=== PATIENT | male | born 1970 | race Caucasian/White ===

== ENCOUNTER → 2019-08-06 08:43 | Outpatient (BNVA) | payer MEDICARE, MEDICAID, SELFPAY | PROVIDERS: Family Provider Nurse Practitioner; PCP Nurse Practitioner; Visit Provider Nurse Practitioner | DX: F25.1 Schizoaffective disorder, depressive type (principal); F33.2 Major depressive disorder, recurrent severe without psychotic features; F10.20 Alcohol dependence, uncomplicated; F12.20 Cannabis dependence, uncomplicated | CPT/HCPCS: 99213 ==

== ENCOUNTER → 2019-09-03 07:56 | Outpatient (BNVA) | payer MEDICARE, MEDICAID, SELFPAY | PROVIDERS: Family Provider Nurse Practitioner; PCP Nurse Practitioner; Visit Provider Nurse Practitioner | DX: F25.1 Schizoaffective disorder, depressive type (principal); F33.2 Major depressive disorder, recurrent severe without psychotic features; F12.20 Cannabis dependence, uncomplicated; F10.20 Alcohol dependence, uncomplicated | CPT/HCPCS: 36415; 80053; 80061; 84443; 85025; 99213 ==

== ENCOUNTER 2019-09-03 09:07 | Outpatient (CLI) | payer MEDICARE, MEDICAID, SELFPAY ==
[2019-09-03 09:55] LABS: Basophils # 0.1 10^3/uL (0.0-0.1); Basophils % 0.9 %; Eosinophils # 0.2 10^3/uL (0.0-0.8); Eosinophils % 2.7 %; Hematocrit 42.4 % (42.0-52.0); Hemoglobin 14.4 g/dL (11.7-16.6); Lymphocytes # 1.9 10^3/uL (0.8-4.8); Lymphocytes % 33.6 %; Mean Corpuscular Hemoglobin 34.3 pg (28.0-34.0); Mean Platelet Volume 9.6 fL (7.4-10.4); Monocytes # 0.5 10^3/uL (0.2-0.9); Neutrophils # 3.1 10^3/uL (1.8-7.7); Neutrophils % 54.4 %; Nucleated Red Blood Cells % 0 %; Platelet Count 238 10^3/cmm (130-400); Red Cell Distribution Width 14.2 % (12.1-15.1); White Blood Count 5.6 10^3/uL (4.0-10.0)
[2019-09-03 10:24] LABS: Albumin Level 4.4 g/dL (3.5-5.2); Alkaline Phosphatase 73 IU/L (40-130); Blood Urea Nitrogen 7 mg/dL (6-20); Calcium 9.6 mg/dL (8.5-10.5); Carbon Dioxide 27 mmol/L (22-29); Chloride 100 mmol/L (98-107); Chol HDL Ratio 3.03 mg/dL (1.0-5.00); Cholesterol 191 mg/dL (0-200); Globulin 3.7 g/dL (1.3-4.6); Glomerular Filtration Rate 118.9 mL/min (90-130); Glucose 98 mg/dL (74-109); HDL Cholesterol 63 mg/dL (60-100); LDL Cholesterol Calculated 113 mg/dL (50-129); LDL HDL Ratio 1.79 RATIO (0.00-3.22); Sodium 135 mmol/L (136-145); Thyroid Stimulating Hormone 3.17 uIU/mL (0.27-4.20); Total Bilirubin 0.3 mg/dL (0.15-1.2); Total Protein 8.1 g/dL (6.6-8.7); Triglycerides 75 mg/dL (0-150)
[2019-09-03 10:33] LABS: Alanine Aminotransferase 10 U/L (0-41); Aspartate Amino Transferase 22 U/L (0-40)
== END 2019-09-03 09:08 | disposition home or self-care (01) ==
LOC: LAB 09:16
PROVIDERS: Family Provider Nurse Practitioner; PCP Nurse Practitioner; Visit Provider Nurse Practitioner
DX: F10.20 Alcohol dependence, uncomplicated (principal); F33.2 Major depressive disorder, recurrent severe without psychotic features; Z13.6 Encounter for screening for cardiovascular disorders
CPT/HCPCS: 36415; 80053; 80061; 84443; 85025

== ENCOUNTER → 2019-10-01 08:59 | Outpatient (BNVA) | payer MEDICARE, MEDICAID, SELFPAY | PROVIDERS: Family Provider Nurse Practitioner; PCP Nurse Practitioner; Visit Provider Nurse Practitioner | DX: F25.1 Schizoaffective disorder, depressive type (principal); F33.2 Major depressive disorder, recurrent severe without psychotic features; F10.20 Alcohol dependence, uncomplicated; F12.20 Cannabis dependence, uncomplicated | CPT/HCPCS: 99213 ==

== ENCOUNTER → 2019-10-29 08:40 | Outpatient (BNVA) | payer MEDICARE, MEDICAID, SELFPAY | PROVIDERS: Family Provider Nurse Practitioner; PCP Nurse Practitioner; Visit Provider Nurse Practitioner | DX: F33.2 Major depressive disorder, recurrent severe without psychotic features (principal); F12.20 Cannabis dependence, uncomplicated; F10.20 Alcohol dependence, uncomplicated; F25.1 Schizoaffective disorder, depressive type | CPT/HCPCS: 99213 ==

== ENCOUNTER → 2019-11-26 07:44 | Outpatient (BNVA) | payer MEDICARE, MEDICAID, SELFPAY | PROVIDERS: Family Provider Nurse Practitioner; PCP Nurse Practitioner; Visit Provider Nurse Practitioner | DX: F25.1 Schizoaffective disorder, depressive type (principal) | CPT/HCPCS: 99213 ==

== ENCOUNTER → 2019-12-24 07:37 | Outpatient (BNVA) | payer MEDICARE, MEDICAID, SELFPAY | PROVIDERS: Family Provider Nurse Practitioner; PCP Nurse Practitioner; Visit Provider Nurse Practitioner | DX: F33.2 Major depressive disorder, recurrent severe without psychotic features (principal); F25.1 Schizoaffective disorder, depressive type; F12.20 Cannabis dependence, uncomplicated; F10.20 Alcohol dependence, uncomplicated; F15.20 Other stimulant dependence, uncomplicated | CPT/HCPCS: 99214 ==

== ENCOUNTER → 2020-01-21 07:40 | Outpatient (BNVA) | payer MEDICARE, MEDICAID, SELFPAY | PROVIDERS: Family Provider Nurse Practitioner; PCP Nurse Practitioner; Visit Provider Nurse Practitioner | DX: F33.2 Major depressive disorder, recurrent severe without psychotic features (principal); F25.1 Schizoaffective disorder, depressive type; F10.20 Alcohol dependence, uncomplicated; F12.20 Cannabis dependence, uncomplicated; F15.20 Other stimulant dependence, uncomplicated | CPT/HCPCS: 99214 ==

== ENCOUNTER → 2020-02-18 07:58 | Outpatient (BNVA) | payer MEDICARE, MEDICAID, SELFPAY | PROVIDERS: Family Provider Nurse Practitioner; PCP Nurse Practitioner; Visit Provider Nurse Practitioner | DX: F25.1 Schizoaffective disorder, depressive type (principal); F33.2 Major depressive disorder, recurrent severe without psychotic features; F10.20 Alcohol dependence, uncomplicated; F12.20 Cannabis dependence, uncomplicated; F15.20 Other stimulant dependence, uncomplicated | CPT/HCPCS: 99213 ==

== ENCOUNTER → 2020-03-17 11:05 | Outpatient (BNVA) | payer MEDICARE, MEDICAID, SELFPAY | PROVIDERS: Family Provider Nurse Practitioner; PCP Nurse Practitioner; Visit Provider Nurse Practitioner Psychiatric/Mental Health | DX: F25.1 Schizoaffective disorder, depressive type (principal); F10.20 Alcohol dependence, uncomplicated; F12.20 Cannabis dependence, uncomplicated; F15.20 Other stimulant dependence, uncomplicated | CPT/HCPCS: 96372; 99213 ==

== ENCOUNTER → 2020-04-14 08:03 | Outpatient (BNVA) | payer MEDICARE, MEDICAID, SELFPAY | PROVIDERS: Family Provider Nurse Practitioner; PCP Nurse Practitioner; Visit Provider Nurse Practitioner | DX: F25.1 Schizoaffective disorder, depressive type (principal) | CPT/HCPCS: 96372; 99213 ==

== ENCOUNTER → 2020-05-12 08:26 | Outpatient (BNVA) | payer MEDICARE, MEDICAID, SELFPAY | PROVIDERS: Family Provider Nurse Practitioner; PCP Nurse Practitioner; Visit Provider Nurse Practitioner | DX: F25.1 Schizoaffective disorder, depressive type (principal) | CPT/HCPCS: 96372; 99213 ==

== ENCOUNTER → 2020-06-09 11:33 | Outpatient (BNVA) | payer MEDICARE, MEDICAID, SELFPAY | PROVIDERS: Family Provider Nurse Practitioner; PCP Nurse Practitioner; Visit Provider Nurse Practitioner | DX: F25.1 Schizoaffective disorder, depressive type (principal) | CPT/HCPCS: 96372; 99213 ==

== ENCOUNTER → 2020-07-07 11:20 | Outpatient (BNVA) | payer MEDICARE, MEDICAID, SELFPAY | PROVIDERS: Family Provider Nurse Practitioner; PCP Nurse Practitioner; Visit Provider Nurse Practitioner | DX: F25.1 Schizoaffective disorder, depressive type (principal) | CPT/HCPCS: 96372; 99213 ==

== ENCOUNTER → 2020-08-02 11:51 | Outpatient (BNVA) | payer MEDICARE, MEDICAID, SELFPAY | PROVIDERS: Family Provider Nurse Practitioner; PCP Nurse Practitioner; Visit Provider Nurse Practitioner | DX: F25.1 Schizoaffective disorder, depressive type (principal); F10.20 Alcohol dependence, uncomplicated; F12.20 Cannabis dependence, uncomplicated | CPT/HCPCS: 96372; 99213 ==

== ENCOUNTER → 2020-08-30 13:33 | Outpatient (BNVA) | payer MEDICARE, MEDICAID, SELFPAY | PROVIDERS: Family Provider Nurse Practitioner; PCP Nurse Practitioner; Visit Provider Nurse Practitioner | DX: F25.1 Schizoaffective disorder, depressive type (principal); F10.20 Alcohol dependence, uncomplicated; F12.20 Cannabis dependence, uncomplicated; F15.21 Other stimulant dependence, in remission | CPT/HCPCS: 96372; 99214 ==

== ENCOUNTER → 2020-09-27 10:48 | Outpatient (BNVA) | payer MEDICARE, MEDICAID, SELFPAY | PROVIDERS: Family Provider Nurse Practitioner; PCP Nurse Practitioner; Visit Provider Nurse Practitioner | DX: F25.1 Schizoaffective disorder, depressive type (principal); F15.21 Other stimulant dependence, in remission; F12.20 Cannabis dependence, uncomplicated; F10.20 Alcohol dependence, uncomplicated | CPT/HCPCS: 96372; 99214 ==

== ENCOUNTER → 2020-10-28 14:12 | Outpatient (BNVA) | payer MEDICARE, MEDICAID, SELFPAY | PROVIDERS: Family Provider Nurse Practitioner; PCP Nurse Practitioner; Visit Provider Nurse Practitioner | DX: F25.1 Schizoaffective disorder, depressive type (principal) | CPT/HCPCS: 96372; 99214 ==

== ENCOUNTER → 2020-11-23 09:53 | Outpatient (BNVA) | payer MEDICARE, MEDICAID, SELFPAY | PROVIDERS: Family Provider Nurse Practitioner; PCP Nurse Practitioner; Visit Provider Nurse Practitioner | DX: F25.1 Schizoaffective disorder, depressive type (principal); F10.20 Alcohol dependence, uncomplicated; Z79.899 Other long term (current) drug therapy; F15.21 Other stimulant dependence, in remission; F12.20 Cannabis dependence, uncomplicated | CPT/HCPCS: 36415; 96372; 99214 ==

== ENCOUNTER 2020-11-23 10:54 | Outpatient (CLI) | payer MEDICARE, SELFPAY | END 2020-11-23 10:55 | disposition home or self-care (01) | PROVIDERS: Family Provider Nurse Practitioner; PCP Nurse Practitioner; Visit Provider Nurse Practitioner | DX: F10.20 Alcohol dependence, uncomplicated (principal); Z79.899 Other long term (current) drug therapy | CPT/HCPCS: 80061; 83036 ==

== ENCOUNTER → 2020-12-20 09:41 | Outpatient (BNVA) | payer MEDICARE, MEDICAID, SELFPAY | PROVIDERS: Family Provider Nurse Practitioner; PCP Nurse Practitioner; Visit Provider Nurse Practitioner | DX: F25.1 Schizoaffective disorder, depressive type (principal); F15.21 Other stimulant dependence, in remission; F12.20 Cannabis dependence, uncomplicated; F10.20 Alcohol dependence, uncomplicated | CPT/HCPCS: 96372; 99214 ==

== ENCOUNTER → 2021-01-18 11:26 | Outpatient (BNVA) | payer MEDICARE, MEDICAID, SELFPAY | PROVIDERS: Family Provider Nurse Practitioner; PCP Nurse Practitioner; Visit Provider Nurse Practitioner | DX: F25.1 Schizoaffective disorder, depressive type (principal); F10.20 Alcohol dependence, uncomplicated; Z79.899 Other long term (current) drug therapy | CPT/HCPCS: 99214 ==

== ENCOUNTER → 2021-02-16 10:48 | Outpatient (BNVA) | payer MEDICARE, MEDICAID, SELFPAY | PROVIDERS: Family Provider Nurse Practitioner; PCP Nurse Practitioner; Visit Provider Nurse Practitioner | DX: F25.1 Schizoaffective disorder, depressive type (principal); F10.20 Alcohol dependence, uncomplicated; F12.20 Cannabis dependence, uncomplicated; F15.21 Other stimulant dependence, in remission | CPT/HCPCS: 96372; 99214 ==

== ENCOUNTER → 2021-03-16 09:50 | Outpatient (BNVA) | payer MEDICARE, MEDICAID, SELFPAY | PROVIDERS: Family Provider Nurse Practitioner; PCP Nurse Practitioner; Visit Provider Nurse Practitioner | DX: F25.1 Schizoaffective disorder, depressive type (principal); F33.2 Major depressive disorder, recurrent severe without psychotic features; F15.21 Other stimulant dependence, in remission; F12.20 Cannabis dependence, uncomplicated; F10.20 Alcohol dependence, uncomplicated | CPT/HCPCS: 96372; 99214 ==

== ENCOUNTER → 2021-04-13 11:16 | Outpatient (BNVA) | payer MEDICARE, MEDICAID, SELFPAY | PROVIDERS: Family Provider Nurse Practitioner; PCP Nurse Practitioner; Visit Provider Nurse Practitioner | DX: F25.1 Schizoaffective disorder, depressive type (principal); F33.2 Major depressive disorder, recurrent severe without psychotic features | CPT/HCPCS: 96372; 99214 ==

== ENCOUNTER → 2021-05-12 09:46 | Outpatient (BNVA) | payer MEDICARE, MEDICAID, SELFPAY | PROVIDERS: Family Provider Nurse Practitioner; PCP Nurse Practitioner; Visit Provider Nurse Practitioner | DX: F25.1 Schizoaffective disorder, depressive type (principal); F33.2 Major depressive disorder, recurrent severe without psychotic features | CPT/HCPCS: 96372; 99214 ==

== ENCOUNTER → 2021-06-09 10:42 | Outpatient (BNVA) | payer MEDICARE, MEDICAID, SELFPAY | PROVIDERS: Family Provider Nurse Practitioner; PCP Nurse Practitioner; Visit Provider Nurse Practitioner | DX: F25.1 Schizoaffective disorder, depressive type (principal); F33.2 Major depressive disorder, recurrent severe without psychotic features; F10.20 Alcohol dependence, uncomplicated; F15.21 Other stimulant dependence, in remission; F12.20 Cannabis dependence, uncomplicated | CPT/HCPCS: 96372; 99214 ==

== ENCOUNTER → 2021-07-11 09:45 | Outpatient (BNVA) | payer MEDICARE, MEDICAID, SELFPAY | PROVIDERS: Family Provider Nurse Practitioner; PCP Nurse Practitioner; Visit Provider Nurse Practitioner | DX: F25.1 Schizoaffective disorder, depressive type (principal); F33.2 Major depressive disorder, recurrent severe without psychotic features; F10.20 Alcohol dependence, uncomplicated; F12.20 Cannabis dependence, uncomplicated; F15.21 Other stimulant dependence, in remission | CPT/HCPCS: 99214 ==

== ENCOUNTER → 2021-08-08 13:51 | Outpatient (BNVA) | payer MEDICARE, MEDICAID, SELFPAY | PROVIDERS: Family Provider Nurse Practitioner; PCP Nurse Practitioner; Visit Provider Nurse Practitioner | DX: F25.1 Schizoaffective disorder, depressive type (principal); F33.2 Major depressive disorder, recurrent severe without psychotic features; F15.21 Other stimulant dependence, in remission; F12.20 Cannabis dependence, uncomplicated; F10.20 Alcohol dependence, uncomplicated | CPT/HCPCS: 96372; 99214 ==

== ENCOUNTER → 2021-09-11 09:57 | Outpatient (BNVA) | payer MEDICARE, MEDICAID, SELFPAY | PROVIDERS: Family Provider Nurse Practitioner; PCP Nurse Practitioner; Visit Provider Nurse Practitioner | DX: F15.21 Other stimulant dependence, in remission (principal); F10.20 Alcohol dependence, uncomplicated; F12.20 Cannabis dependence, uncomplicated; F25.1 Schizoaffective disorder, depressive type; F33.2 Major depressive disorder, recurrent severe without psychotic features | CPT/HCPCS: 96372; 99214 ==

== ENCOUNTER → 2021-10-06 08:49 | Outpatient (BNVA) | payer MEDICARE, MEDICAID, SELFPAY | PROVIDERS: Family Provider Nurse Practitioner; PCP Nurse Practitioner; Visit Provider Nurse Practitioner | DX: F15.21 Other stimulant dependence, in remission (principal); F12.20 Cannabis dependence, uncomplicated; F10.20 Alcohol dependence, uncomplicated; F25.1 Schizoaffective disorder, depressive type; F33.2 Major depressive disorder, recurrent severe without psychotic features | CPT/HCPCS: 96372; 99214 ==

== ENCOUNTER → 2021-11-03 09:20 | Outpatient (BNVA) | payer MEDICARE, MEDICAID, SELFPAY | PROVIDERS: Family Provider Nurse Practitioner; PCP Nurse Practitioner; Visit Provider Nurse Practitioner | DX: F25.1 Schizoaffective disorder, depressive type (principal); F33.2 Major depressive disorder, recurrent severe without psychotic features; F15.21 Other stimulant dependence, in remission; F12.20 Cannabis dependence, uncomplicated; F10.20 Alcohol dependence, uncomplicated | CPT/HCPCS: 96372; 99214 ==

== ENCOUNTER → 2021-12-04 08:53 | Outpatient (BNVA) | payer MEDICARE, MEDICAID, SELFPAY | PROVIDERS: Family Provider Nurse Practitioner; PCP Nurse Practitioner; Visit Provider Nurse Practitioner | DX: F25.1 Schizoaffective disorder, depressive type (principal); F33.2 Major depressive disorder, recurrent severe without psychotic features; F15.21 Other stimulant dependence, in remission; F12.20 Cannabis dependence, uncomplicated; F10.20 Alcohol dependence, uncomplicated | CPT/HCPCS: 96372; 99214 ==

== ENCOUNTER → 2022-01-04 10:57 | Outpatient (BNVA) | payer MEDICARE, MEDICAID, SELFPAY | PROVIDERS: Family Provider Nurse Practitioner; PCP Nurse Practitioner; Visit Provider Nurse Practitioner | DX: F17.210 Nicotine dependence, cigarettes, uncomplicated (principal); F25.1 Schizoaffective disorder, depressive type; F33.2 Major depressive disorder, recurrent severe without psychotic features; F15.21 Other stimulant dependence, in remission; F12.20 Cannabis dependence, uncomplicated; F10.20 Alcohol dependence, uncomplicated | CPT/HCPCS: 96372; 99214 ==

== ENCOUNTER → 2022-01-31 11:15 | Outpatient (BNVA) | payer MEDICARE, MEDICAID, SELFPAY | PROVIDERS: Family Provider Nurse Practitioner; PCP Nurse Practitioner; Visit Provider Nurse Practitioner | DX: F33.2 Major depressive disorder, recurrent severe without psychotic features (principal); F25.1 Schizoaffective disorder, depressive type; F15.21 Other stimulant dependence, in remission; F12.20 Cannabis dependence, uncomplicated; F10.20 Alcohol dependence, uncomplicated | CPT/HCPCS: 96372; 99214 ==

== ENCOUNTER → 2022-10-03 13:45 | Outpatient (BNVA) | payer MEDICARE, MEDICAID, OTHER, SELFPAY | PROVIDERS: Family Provider Nurse Practitioner; PCP Nurse Practitioner; Visit Provider Nurse Practitioner | DX: Z79.899 Other long term (current) drug therapy (principal) | CPT/HCPCS: 80061; 83036 ==

== ENCOUNTER 2023-04-18 11:06 | Outpatient (CLI) | payer MEDICARE, MEDICAID, SELFPAY ==
--- NOTE | 2023-04-18 11:00 | CT_ITS ---
WS: [id number] CT CHEST, ABDOMEN AND PELVIS NONCONTRAST HISTORY: F17.210 - Nicotine dependence, cigarettes, uncomplicated TECHNIQUE: Contiguous 5 mm axial imaging performed through the chest, abdomen and pelvis without IV c ontrast, oral contrast has been provided. Coronal and sagittal reformats chest. Coronal and sagittal reformats through the abdomen and pelvis. All CT scans at [facility] use at least one of thes e dose optimization techniques: automated exposure control; mA and/or kV adjustment per patient size (includes targeted exams where dose is matched to clinical indication); or iterative reconstruction. CONTRAST: None DLP: 399.46 mGy.cm COMPARISON: None available. Chest CT: Centrilobular emphysema. Marked pulmonary hyperexpansion. There are a few scattered microno dules throughout the lungs. Minimal biapical pleural thickening. No mass or nodule. No pneumonia. Nor mal sized pulmonary artery and aorta. No mediastinal or hilar adenopathy. No significant hiatal herni a. No pericardial or pleural effusions. Abdomen CT: Liver, spleen and gallbladder are negative. On this unenhanced exam the pancreas is unrem arkable. There is no common bile duct dilatation. Normal adrenal glands. No renal obstruction. 8 mm e xophytic low-attenuation mass from the posterior LEFT kidney is too small to characterize. Normal aor ta. Visualized GI tract is negative. There is no obstruction. No adenopathy or ascites. Pelvic CT: Urinary bladder is well distended. No free fluid or adenopathy. No destructive bone lesions. Mild degenerative disc disease and spondylosis. IMPRESSION: 1. Lack of IV contrast limits sensitivity and specificity of this examination. 2. Chronic centrilobular emphysema. No mass or nodules. No adenopathy. 3. No GI tract obstruction. 4. No ascites or adenopathy. 5. Indeterminate 8 mm exophytic low-attenuation mass from the LEFT kidney. Consider evaluation by ult rasound to determine if cystic or solid nature of this mass.
[2023-04-18] MEDS: iohexol 350 mg/mL 500 mL Btl (per mL) PO (11:15)
== END 2023-04-18 11:07 | disposition home or self-care (01) ==
PROVIDERS: PCP Nurse Practitioner; Visit Provider Nurse Practitioner
DX: R63.4 Abnormal weight loss (principal); F17.210 Nicotine dependence, cigarettes, uncomplicated; J43.2 Centrilobular emphysema; N28.89 Other specified disorders of kidney and ureter
CPT/HCPCS: 71250; 74176; Q9967

== ENCOUNTER 2023-05-08 12:52 | Outpatient (CLI) | payer MEDICARE, MEDICAID, SELFPAY ==
--- NOTE | 2023-05-08 13:00 | US_ITS ---
WS: [id number] ULTRASOUND RENAL TECHNIQUE: Ultrasound examination of both kidneys. CLINICAL INFORMATION: R93.429 - Abnormal radiologic findings on diagnostic imag... COMPARISON: 04/18/2023 CT FINDINGS: RIGHT: Right kidney is normal in size and appearance. Echogenicity: Normal. Cortical thickness: 1.2 cm; Normal. Hydronephrosis: None. Perinephric fluid: None. Right kidney measures: 10.1 cm x 5.0 cm x 4.3 cm. LEFT:Simple cyst mid LEFT kidney measuring 1.3 x 1.1 x 1.2 cm. Left kidney is normal in size and appearance. Echogenicity: Normal. Cortical thickness: 1.2 cm; Normal. Hydronephrosis: None. Perinephric fluid: None. Left kidney measures: 10.1 cm x 5.7 cm x 4.3 cm. Normal visualized aorta with mild to moderate atheromatous disease. IMPRESSION: Technically difficult study due to bowel gas. 1. No hydronephrosis in either kidney. 2. Bladder not visualized. 3. Simple cyst mid LEFT kidney measuring 1.3 x 1.1 x 1.2 cm.
== END 2023-05-08 12:53 | disposition home or self-care (01) ==
PROVIDERS: PCP Nurse Practitioner; Visit Provider Nurse Practitioner
DX: R93.429 Abnormal radiologic findings on diagnostic imaging of unspecified kidney (principal); N28.1 Cyst of kidney, acquired
CPT/HCPCS: 76770

== ENCOUNTER → 2024-03-12 14:58 | Outpatient (BNVA) | payer MEDICARE, MEDICAID, OTHER, SELFPAY | PROVIDERS: PCP Nurse Practitioner; Visit Provider Nurse Practitioner | DX: Z79.899 Other long term (current) drug therapy (principal) | CPT/HCPCS: 80061; 83036 ==

== ENCOUNTER → 2025-04-26 12:04 | Outpatient (BNVA) | payer MEDICARE, MEDICAID, SELFPAY | PROVIDERS: PCP Nurse Practitioner; Visit Provider Nurse Practitioner | DX: Z79.899 Other long term (current) drug therapy (principal) | CPT/HCPCS: 80061; 83036 ==

== ENCOUNTER 2025-05-26 11:37 | Outpatient (CLI) | payer MEDICARE, MEDICAID, SELFPAY ==
[2025-05-26 13:19] LABS: Alanine Aminotransferase 17 U/L (0-41); Albumin Level 4.5 g/dL (3.5-5.2); Alkaline Phosphatase 64 U/L (40-130); Anion Gap 18.9 (5-19); Aspartate Amino Transferase 27 U/L (0-40); Blood Urea Nitrogen 5 mg/dL (6-20); Calcium 9.1 mg/dL (8.5-10.5); Carbon Dioxide 22 mmol/L (22-29); Chloride 99 mmol/L (98-107); Globulin 3.3 g/dL (1.3-4.6); Glucose 104 mg/dL (65-115); Osmolality Calculated 280 mOsm/kg (285-295); Potassium 3.9 mmol/L (3.5-5.1); Sodium 136 mmol/L (136-145); Thyroid Stimulating Hormone 3.04 uIU/mL (0.27-4.20); Total Protein 7.8 g/dL (6.6-8.7)
== END 2025-05-26 11:38 | disposition home or self-care (01) ==
LOC: LAB 11:40
PROVIDERS: PCP Nurse Practitioner; Visit Provider Nurse Practitioner
DX: J43.2 Centrilobular emphysema (principal); F25.1 Schizoaffective disorder, depressive type; Z12.5 Encounter for screening for malignant neoplasm of prostate; F33.2 Major depressive disorder, recurrent severe without psychotic features
CPT/HCPCS: 36415; 80053; 84443; G0103